=== PATIENT | female | born 1955 | race Caucasian/White ===

== ENCOUNTER 2017-05-21 19:38 | Emergency (ER) | payer BC ==
[~2017-05-21] VITALS: Ht 177.8 cm; Wt 74.0 kg
[~2017-05-21 19:38] MED LIST: ESTRACE VAG0.1 MG/GM VA; ESTRING2 MG VA
[2017-05-21] MEDS ORDERED: ZOVIRAX800 MG PO (20:36)
[2017-05-21 21:01] VITALS: BP 115/80
== END 2017-05-21 21:01 | disposition home or self-care (01) | DRG 596 ==
LOC: ED 19:38
DX: B02.9 Zoster without complications (principal)